=== PATIENT | female | born 1935 | race Caucasian/White ===

== ENCOUNTER 2022-06-22 05:53 | Emergency (ER) | payer OTHER, MEDICAID ==
[~2022-06-22] VITALS: Ht 157.5 cm; Wt 48.1 kg
[2022-06-22 06:00] VITALS: BP_SYST 201
--- NOTE | 2022-06-22 06:04 | NUR ---
PATIENT C/O EXTREME HEADACHE SINCED 2229 LAST NIGHT ON RIGHT SIDE OF HEAD. PATIENT IS HYPERTENSIVE (HISTORY OF HYPOTENSION), NO N/V OR BLURRED VISION, UNI-LATERAL WEAKNESS PRESENT.
--- NOTE | 2022-06-22 06:10 | NUR ---
Pt from home with c/o of headache. Pt states the headcahe is located to the right posterior side that radiates to neck and tender to the touch. Pt states the headache started at 2200 06/21/2022. Pt reports hx of RA. Pt A&O x4, following commands and connected to monitor. Daughter at bedside.
--- NOTE | 2022-06-22 06:15 | NUR ---
Dr. Bell at bedside with patient for evaluation.
[2022-06-22] MEDS ORDERED: NACL 0.9% 1,000 ML IV ONE (06:30)
[2022-06-22] MEDS ORDERED: METHYLPREDNISOLONE SOD SUCC 40 MG/ML VIAL IVP ONE (06:30)
[2022-06-22] MEDS ORDERED: METHOCARBAMOL 1000 MG/10 ML VIAL IVP ONE (06:30)
[2022-06-22] MEDS ORDERED: KETOROLAC TROMETHAMINE 30 MG VIAL IVP ONE (06:30)
[2022-06-22] MEDS ORDERED: MORPHINE 2 MG/ML INJ. SYRINGE IVP ONE (06:30)
--- NOTE | 2022-06-22 07:00 | NUR ---
PT to CT via [facility] accompanied by staff.
--- NOTE | 2022-06-22 07:03 | NUR ---
IVF NS 999ml/hour initiated, to be completed at 0803.
--- NOTE | 2022-06-22 07:10 | NUR ---
Pt back from CT via [facility] accompanied by staff.
--- NOTE | 2022-06-22 07:18 | NUR ---
Report given to Terra HINES to assume care. All questions and concerns answered at this time.
--- NOTE | 2022-06-22 07:20 | NUR ---
Received pt from [facility]OR[facility]. Assumed all care. Pt is AAOx4. Recently back from CT scan and placed back on monitor. Resp E/U. on R/A. Normal S1S2 noted. Abdomen soft, nontender, nondistended. Denies N/V/D/C. Skin warm, CDI, no edema. IV Cath 22G to RFA. Site WNL. N/S at 999ml/hour running. Pt has c/o H/A 05/28. Will medicate per DEC. Family at bedside, siderails up x2.
--- NOTE | 2022-06-22 07:25 | NUR ---
Dr. Bell at bedside discussing POC.
[2022-06-22] MEDS ORDERED: MORPHINE 4 MG INJ. 4 MG/ML VIAL IVP ONE (07:30)
--- NOTE | 2022-06-22 07:30 | NUR ---
anesthesiology technologist unable to obtain blood draw. Pt has refused any more attempts to obtain blood. Pt educated on risks of refusal for blood draw, education reinforced. Pt still refuses.
--- NOTE | 2022-06-22 07:45 | NUR ---
Methocarbamol 1000mg IVP given. Patient states it has significant decreased her pain. Morphine ivp ordered will be held at this time.
--- NOTE | 2022-06-22 08:14 | NUR ---
Dr. Bell stated may cancel labs due to pt's refusal. rad technologist made aware.
--- NOTE | 2022-06-22 08:30 | NUR ---
Dr. Bell at bedside, discussing POC.
[2022-06-22] MEDS ORDERED: METH-634 PO (09:02)
[2022-06-22] MEDS ORDERED: PRED20TA PO (09:02)
[2022-06-22] MEDS ORDERED: TRAM50TA2 PO (09:02)
--- NOTE | 2022-06-22 09:30 | NUR ---
Patient given written and verbal discharge instructions and verbalizes understanding. ER MD discussed with patient the results and treatment provided. Patient in stable condition. ID arm band removed. IV catheter removed intact and dressing applied, no active bleeding. Rx of methocarbamol/prednisone/tramadol given. Patient educated on pain management and to follow up with PMD. Pain Scale 0/10. Opportunity for questions provided and answered. Medication side effect fact sheet provided.
[2022-06-22 09:40] VITALS: BP_SYST 169
== END 2022-06-22 09:40 | disposition home or self-care (01) ==
LOC: SED 05:53
DX: M54.81 Occipital neuralgia (principal); M06.9 Rheumatoid arthritis, unspecified; I10 Essential (primary) hypertension; Z79.899 Other long term (current) drug therapy
CPT/HCPCS: 99284; 70450; 96374; 96375; 96361; 72125; 76376; J1885; J2800; J2270; J7030; J1030